=== PATIENT | female | born 1990 | race Caucasian/White ===

== ENCOUNTER 2019-12-26 21:32 | Emergency (ER) | payer MEDICAID ==
[~2019-12-26] VITALS: Ht 165.1 cm; Wt 52.2 kg
[2019-12-26] MEDS ORDERED: [UNRECOGNIZED DRUG - REMARK] (21:41)
[2019-12-26] MEDS ORDERED: KETOROLAC TROMETHAMINE 15 MG INJ IM ONE (21:45)
[2019-12-26] MEDS ORDERED: DEXAMETHASONE SOD PHOSPHATE 4 MG INJ IM ONE (21:45)
[2019-12-26] MEDS ORDERED: KETOROLAC TROMETHAMINE 15 MG INJ ONE (21:59)
[2019-12-26] MEDS ORDERED: DEXAMETHASONE SOD PHOSPHATE 10 MG INJ ONE (21:59)
[2019-12-26 22:10] VITALS: BP 122/58
== END 2019-12-26 22:12 | disposition home or self-care (01) ==
LOC: ER 21:39
DX: J02.9 Acute pharyngitis, unspecified (principal); M54.41 Lumbago with sciatica, right side
CPT/HCPCS: 36415; 86403; 87070; A4663; J1100; J1885